=== PATIENT | male | born 2000 | race Caucasian/White ===

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

== ENCOUNTER 2018-10-04 09:50 | Emergency (ER) | payer OTHER ==
[~2018-10-04] VITALS: Ht 175.3 cm; Wt 70.3 kg
[~2018-10-04 09:50] MED LIST changes: +CARAFATE1 GM/10 ML PO; +ONDANSETRON HCL4 M2 PO
[2018-10-04 10:20] VITALS: BP 144/81
--- NOTE | 2018-10-04 16:16 | EKG ---
[place] [address] ELECTROCARDIOGRAM REPORT Name: KIRK MARIA Room: [facility]#: [id number] Admission: 10/04/18 Attend Phys: Discharge: 10/04/18 Date of : [birth year] Report #: [id number] THIS REPORT FOR: //name// [facility] ED Test Date: 2018-10-04 Test Time: 09:57:09 Pat Name: KIRK MARIA Department: Room: Gender: M [employer]: : 2000 Requested By: Abdiel Payton Order Number: [id number] MD: Yasir Marcelo Measurements Intervals [place] Rate: 84 P: 25 OR: 118 QRS: 52 QRSD: 84 T: 49 QT: 358 QTc: 424 Interpretive Statements Sinus rhythm Borderline short OR interval Baseline wander in lead(s) I,III,aVL,aVF Compared to ECG 02/22/2015 00:07:39 Sinus arrhythmia no longer present Electronically Signed On 10-04-2018 16:16:40 CDT by Yasir Marcelo [email or web address] <ELECTRONICALLY SIGNED> By: Yasir Marcelo MD, [facility] 10/04/18 [id number] Yasir Marcelo MD, [facility] /EPI
== END 2018-10-04 10:21 | disposition home or self-care (01) ==
LOC: M.ERS 09:50
DX: F41.0 Panic disorder [episodic paroxysmal anxiety] (principal); M41.9 Scoliosis, unspecified; F17.210 Nicotine dependence, cigarettes, uncomplicated; Z90.49 Acquired absence of other specified parts of digestive tract